=== PATIENT | female | born 1950 | race African-American/Black ===

== ENCOUNTER 2021-06-23 09:16 | Inpatient (IN) | payer MEDICARE, MEDICAID ==
[~2021-06-23] VITALS: Ht 154.9 cm; Wt 50.3 kg
[~2021-06-23 09:16] MED LIST: ALEN70TA79; BENA40TA9; CALC-1042; DILT240C96; DORZ10DR9 EACHEYE; FLUT1DIS3 INH; GABA-532; HYDR25TA PO; INSU100V3 IJ; METF500T PO; OMEP20CA4; PARO-41 PO; PRAV40TA58; TIOT18CA3 INH; lantus SQ; proair IH
[2021-06-23] MEDS ORDERED: SODIUM CHLORIDE 0.9% 250 ML IV ONE (10:00)
[2021-06-23] MEDS ORDERED: CEFTRIAXONE 1 G PREMIX 50 ML IV STA (10:21)
[2021-06-23] MEDS ORDERED: AZITHROMYCIN 500MG/250ML 250 ML IV ONE (10:30)
[2021-06-23 10:31] LABS: BASOPHILS % 0.5 % (0.0-2.0); EOSINOPHILS % 1.1 % (0.0-5.0); HEMATOCRIT. 46.5 % (36.0-48.0); HEMOGLOBIN. 15.1 g/dL (12.0-16.0); MEAN CORPUSCULAR HEMOGLOBIN 29.4 pg (28.0-32.0); MEAN CORPUSCULAR VOLUME 90.3 fL (81.0-99.0); MEAN PLATELET VOLUME 8.6 fl (7.4-10.4); MONOCYTES % 6.3 % (2.0-8.0); NEUTROPHILS % 76.1 % (40.0-76.0); PLATELET 247 x1000/uL (130-400); RED BLOOD CELL COUNT 5.15 mill/uL (4.2-5.4); RED CELL DISTRIBUTION WIDTH 17.1 % (11.6-14.6)
[2021-06-23 10:39] LABS: CHLORIDE 109 mEq/L (98-107)
[2021-06-23] MEDS ORDERED: ASPIRIN 81MG TABLET PO ONE (12:00)
[2021-06-23 13:40] LABS: CLARITY URINE CLOUDY (CLEAR); COLOR URINE YELLOW (YELLOW); KETONES URINE TRACE (NEGATIVE); LEUKOCYTE ESTERASE URINE NEGATIVE (NEGATIVE); NITRITE URINE NEGATIVE (NEGATIVE); OCCULT BLOOD URINE NEGATIVE (NEGATIVE); PH URINE 5.5 (4.5-8.0); PROTEIN URINE 3+ (NEGATIVE); SPECIFIC GRAVITY URINE 1.026 (1.005-1.030)
[2021-06-23] MEDS ORDERED: DEXTROSE 50% WATER 50ML SYRINGE IV PRN (15:30)
[2021-06-23] MEDS ORDERED: CEFTRIAXONE 1 G PREMIX 50 ML IV SCH (15:30)
[2021-06-23 15:45] LABS: BG BASE EXCESS -0.9 mmol/L (-2.0-2.0); BG CARBOXYHEMOGLOBIN 1.3 % (0.5-1.5); BG DEOXYHEMOGLOBIN 11.2 % (0.0-5.0); BG HCO3 ACT 21.2 mmol/L (22.0-26.0); BG METHEMOGLOBIN 0.2 % (0.0-1.5); BG OXYGEN SATURATION 88.6 % (92.0-98.5); BG OXYHEMOGLOBIN 87.3 % (94.0-97.0); BG PCO2 28.9 mmHg (35.0-45.0); BG PH 7.483 (7.350-7.450); BG PO2 53.2 mmHg (75.0-100.0); BG TOTAL HEMOGLOBIN 15.5 g/dL (12.0-18.0); BG VENT MODE NASAL CANNULA
[2021-06-23] MEDS: METHYLPREDNISOLONE SOD SUCC 40 MG/ML VIAL IV SCH ×2 (15:57→20:59)
[2021-06-23] MEDS: DEXT 5%/0.45% NACL 1000ML 1,000 ML IV SCH (15:57)
[2021-06-23] MEDS ORDERED: LORAZEPAM 0.5MG TABLET PO PRN (17:15)
[2021-06-23] MEDS ORDERED: DOCUSATE SODIUM 100MG CAPSULE PO PRN (17:15)
[2021-06-23] MEDS ORDERED: DIPHENHYDRAMINE 50MG/ML VIAL IV PRN (17:15)
[2021-06-23] MEDS ORDERED: CLONIDINE 0.1MG TABLET PO PRN (17:15)
[2021-06-23] MEDS ORDERED: HYDROCODONE/ACETAMINOPHEN 5/325MG TABLET PO PRN (17:15)
[2021-06-23] MEDS ORDERED: GUAIFENESIN 200MG/10ML SUGAR FREE UDC PO PRN (17:15)
[2021-06-23] MEDS ORDERED: IPRATROPIUM/ALBUTEROL 0.5-3(2.5)MG/3ML NEB NEB PRN (17:15)
[2021-06-23] MEDS ORDERED: ACETAMINOPHEN 650MG SUPP PR PRN (17:15)
[2021-06-23] MEDS ORDERED: NA PHOS,M-B/NA PHOS,DI-BA ENEMA 118ML PR PRN (17:15)
[2021-06-23] MEDS ORDERED: MAGNESIUM/ALUMINUM HYDROXIDE/SIMETHICONE 30ML UDC PO PRN (17:15)
[2021-06-23] MEDS ORDERED: ONDANSETRON HCL 4MG/2ML INJ IV PRN (17:15)
[2021-06-23] MEDS: BLOOD SUGAR DIAGNOSTIC STRIP TEST SCH ×2 (17:27→21:59)
[2021-06-23 17:39] LABS: INR 1.1; PROTHROMBIN TIME 12.2 sec (9.6-11.0)
[2021-06-23] MEDS: ENOXAPARIN 30MG/0.3ML SYR SUBCUT SCH (18:34)
[2021-06-23] MEDS: FAMOTIDINE 20MG TABLET PO SCH (20:59)
[2021-06-23] MEDS ORDERED: NALOXONE HCL 0.4MG/ML VIAL IV PRN (22:00)
[2021-06-23 23:00] VITALS: BP 158/69
[2021-06-24 00:01] VITALS: BP 158/69
[2021-06-24 00:15] LABS: CREATINE KINASE MB FRACTION 6.9 ng/mL (0.5-3.6)
[2021-06-24] MEDS: DEXT 5%/0.45% NACL 1000ML 1,000 ML IV SCH (04:50)
[2021-06-24] MEDS: BLOOD SUGAR DIAGNOSTIC STRIP TEST SCH ×5 (07:16→20:24)
[2021-06-24] MEDS: CEFTRIAXONE 1,000 MG in DEXTROSE 5% WATER 50 ML IV SCH (07:28)
[2021-06-24 08:00] VITALS: BP 148/68
[2021-06-24] MEDS ORDERED: CEFTRIAXONE 1,000 MG in DEXTROSE 5% WATER 50 ML IV SCH (08:00)
[2021-06-24 08:22] LABS: BASOPHILS % 0.2 % (0.0-2.0); HEMATOCRIT. 48.6 % (36.0-48.0); HEMOGLOBIN. 15.8 g/dL (12.0-16.0); LYMPHOCYTES % 22.2 % (20.0-50.0); MEAN CORPUSCULAR HEMOGLOBIN 30.1 pg (28.0-32.0); MEAN CORPUSCULAR VOLUME 92.6 fL (81.0-99.0); MEAN PLATELET VOLUME 8.8 fl (7.4-10.4); MONOCYTES % 5.3 % (2.0-8.0); NEUTROPHILS % 72.3 % (40.0-76.0); PLATELET 259 x1000/uL (130-400); RED BLOOD CELL COUNT 5.25 mill/uL (4.2-5.4); RED CELL DISTRIBUTION WIDTH 17.1 % (11.6-14.6)
[2021-06-24 08:27] LABS: CHLORIDE 109 mEq/L (98-107)
[2021-06-24 08:39] LABS: CREATINE KINASE 352 IU/L (26-192)
[2021-06-24 08:42] LABS: CREATINE KINASE MB FRACTION 7.1 ng/mL (0.5-3.6)
[2021-06-24] MEDS: AZITHROMYCIN 500 MG in DEXT 5% WATER 250 ML IV SCH (09:00)
[2021-06-24] MEDS: METHYLPREDNISOLONE SOD SUCC 40 MG/ML VIAL IV SCH ×2 (09:00→21:04)
[2021-06-24] MEDS: ASPIRIN 81MG EC TABLET PO SCH (09:00)
[2021-06-24] MEDS ORDERED: AZITHROMYCIN 500 MG in DEXT 5% WATER 250 ML IV SCH (09:00)
[2021-06-24] MEDS ORDERED: DEXTROSE 50% WATER 50ML SYRINGE IV PRN (12:00)
[2021-06-24] MEDS: INSULIN LISPRO 100 UNITS/ML SUBCUT SCH ×3 (12:14→21:05)
[2021-06-24 13:34] LABS: *AMPHETAMINES SCREEN URINE NEGATIVE (NEGATIVE); *BARBITURATES SCREEN URINE NEGATIVE (NEGATIVE); OPIATES URINE SCREEN NEGATIVE (NEGATIVE)
[2021-06-24 13:35] LABS: *BENZODIAZEPINES SCREEN URINE NEGATIVE (NEGATIVE); *COCAINE SCREEN URINE NEGATIVE (NEGATIVE)
[2021-06-24 13:36] LABS: METHADONE URINE SCREEN NEGATIVE (NEGATIVE)
[2021-06-24 13:38] LABS: PHENCYCLIDINE URINE SCREEN NEGATIVE (NEGATIVE)
[2021-06-24 13:41] LABS: CANNABINOID URINE SCREEN NEGATIVE (NEGATIVE)
[2021-06-24 16:00] VITALS: BP 150/71
[2021-06-24] MEDS: ENOXAPARIN 30MG/0.3ML SYR SUBCUT SCH (17:16)
[2021-06-24] MEDS: DILTIAZEM HCL 60MG TABLET PO SCH (17:17)
[2021-06-24 20:00] VITALS: BP 129/48
[2021-06-24] MEDS: IPRATROPIUM/ALBUTEROL 0.5-3(2.5)MG/3ML NEB HHN SCH (20:34)
[2021-06-24] MEDS: FAMOTIDINE 20MG TABLET PO SCH (21:04)
[2021-06-25] MEDS: LORAZEPAM 2MG/ML CPJ IV PRN ×2 (00:50→16:58)
[2021-06-25] MEDS: IPRATROPIUM/ALBUTEROL 0.5-3(2.5)MG/3ML NEB HHN SCH ×3 (02:45→20:39)
[2021-06-25 06:46] LABS: HEMATOCRIT. 44.1 % (36.0-48.0); HEMOGLOBIN. 14.1 g/dL (12.0-16.0); MEAN CORPUSCULAR HEMOGLOBIN 29.2 pg (28.0-32.0); MEAN CORPUSCULAR VOLUME 91.4 fL (81.0-99.0); MEAN PLATELET VOLUME 8.7 fl (7.4-10.4); PLATELET 271 x1000/uL (130-400); RED BLOOD CELL COUNT 4.82 mill/uL (4.2-5.4); RED CELL DISTRIBUTION WIDTH 17.1 % (11.6-14.6)
[2021-06-25] MEDS: BLOOD SUGAR DIAGNOSTIC STRIP TEST SCH ×4 (07:10→20:51)
[2021-06-25] MEDS: INSULIN LISPRO 100 UNITS/ML SUBCUT SCH ×4 (07:40→20:51)
[2021-06-25 08:00] VITALS: BP 130/64
[2021-06-25] MEDS: CEFTRIAXONE 1,000 MG in DEXTROSE 5% WATER 50 ML IV SCH (08:59)
[2021-06-25] MEDS: AZITHROMYCIN 500 MG in DEXT 5% WATER 250 ML IV SCH (08:59)
[2021-06-25] MEDS: ASPIRIN 81MG EC TABLET PO SCH (09:00)
[2021-06-25] MEDS: METHYLPREDNISOLONE SOD SUCC 40 MG/ML VIAL IV SCH ×2 (09:00→20:50)
[2021-06-25 11:51] LABS: BG BASE EXCESS -6.6 mmol/L (-2.0-2.0); BG CARBOXYHEMOGLOBIN 0.4 % (0.5-1.5); BG DEOXYHEMOGLOBIN 9.6 % (0.0-5.0); BG FRACTION INSPIRED OXYGEN 21; BG HCO3 ACT 15.6 mmol/L (22.0-26.0); BG OXYGEN SATURATION 90.4 % (92.0-98.5); BG PCO2 24.1 mmHg (35.0-45.0); BG PH 7.429 (7.350-7.450); BG PO2 59.9 mmHg (75.0-100.0); BG SAMPLE SITE LEFT BRACHIAL; BG TOTAL HEMOGLOBIN 14.9 g/dL (12.0-18.0); BG VENT MODE ROOM AIR
[2021-06-25 11:51] LABS: VITAMIN B12 SERUM > 2000.0 pg/mL (211-911)
[2021-06-25 12:00] VITALS: BP 134/67
[2021-06-25] MEDS ORDERED: FUROSEMIDE 40MG/4ML VIAL IVP NR (12:00)
[2021-06-25] MEDS: DILTIAZEM HCL 60MG TABLET PO SCH ×4 (12:39→16:58)
[2021-06-25] MEDS: ISOSORBIDE MONONITRATE 30MG TABLET SR 24HR PO SCH (12:40)
[2021-06-25 13:59] LABS: PLATELET ESTIMATE NORMAL
[2021-06-25] MEDS: NICOTINE 14MG PATCH TD SCH (15:35)
[2021-06-25 16:00] VITALS: BP 122/65
[2021-06-25] MEDS: ENOXAPARIN 30MG/0.3ML SYR SUBCUT SCH (16:58)
[2021-06-25 20:00] VITALS: BP 108/61
[2021-06-25] MEDS: FAMOTIDINE 20MG TABLET PO SCH (20:50)
[2021-06-26] VITALS: BP 140/64
[2021-06-26] MEDS: DILTIAZEM HCL 60MG TABLET PO SCH ×4 (00:16→18:17)
[2021-06-26] MEDS: LORAZEPAM 2MG/ML CPJ IV PRN ×2 (00:17→15:24)
[2021-06-26] MEDS: IPRATROPIUM/ALBUTEROL 0.5-3(2.5)MG/3ML NEB HHN SCH ×4 (02:23→21:22)
[2021-06-26 04:00] VITALS: BP 100/66
[2021-06-26] MEDS: BLOOD SUGAR DIAGNOSTIC STRIP TEST SCH ×4 (06:57→21:16)
[2021-06-26] MEDS: INSULIN LISPRO 100 UNITS/ML SUBCUT SCH ×4 (06:57→21:46)
[2021-06-26 07:10] LABS: BASOPHILS % 0.1 % (0.0-2.0); HEMATOCRIT. 42.3 % (36.0-48.0); HEMOGLOBIN. 13.3 g/dL (12.0-16.0); LYMPHOCYTES % 8.5 % (20.0-50.0); MEAN CORPUSCULAR HEMOGLOBIN 29.1 pg (28.0-32.0); MEAN CORPUSCULAR VOLUME 92.3 fL (81.0-99.0); MEAN PLATELET VOLUME 8.3 fl (7.4-10.4); MONOCYTES % 3.3 % (2.0-8.0); NEUTROPHILS % 88.1 % (40.0-76.0); PLATELET 247 x1000/uL (130-400); RED BLOOD CELL COUNT 4.59 mill/uL (4.2-5.4); RED CELL DISTRIBUTION WIDTH 17.1 % (11.6-14.6)
[2021-06-26 08:00] VITALS: BP 141/69
[2021-06-26] MEDS: CEFTRIAXONE 1,000 MG in DEXTROSE 5% WATER 50 ML IV SCH (08:54)
[2021-06-26] MEDS: ASPIRIN 81MG EC TABLET PO SCH (08:54)
[2021-06-26] MEDS: METHYLPREDNISOLONE SOD SUCC 40 MG/ML VIAL IV SCH (08:54)
[2021-06-26] MEDS: NICOTINE 14MG PATCH TD SCH (08:54)
[2021-06-26] MEDS: AZITHROMYCIN 500 MG in DEXT 5% WATER 250 ML IV SCH (08:54)
[2021-06-26] MEDS: ISOSORBIDE MONONITRATE 30MG TABLET SR 24HR PO SCH (08:59)
[2021-06-26] MEDS: ACETAMINOPHEN 325MG TABLET PO PRN (10:43)
[2021-06-26 12:00] VITALS: BP 130/67
[2021-06-26] MEDS: RISPERIDONE 0.25MG TABLET PO SCH (15:24)
[2021-06-26 16:30] VITALS: BP 123/69
[2021-06-26] MEDS: ENOXAPARIN 30MG/0.3ML SYR SUBCUT SCH (18:13)
[2021-06-26 20:00] VITALS: BP 104/62
[2021-06-26] MEDS: FAMOTIDINE 20MG TABLET PO SCH (21:16)
[2021-06-27] VITALS: BP 130/89
[2021-06-27] MEDS: DILTIAZEM HCL 60MG TABLET PO SCH ×4 (00:14→17:57)
[2021-06-27] MEDS: IPRATROPIUM/ALBUTEROL 0.5-3(2.5)MG/3ML NEB HHN SCH ×3 (00:37→21:56)
[2021-06-27 04:00] VITALS: BP 126/81
[2021-06-27] MEDS: BLOOD SUGAR DIAGNOSTIC STRIP TEST SCH ×4 (06:10→21:00)
[2021-06-27 07:06] LABS: BASOPHILS % 0.1 % (0.0-2.0); HEMATOCRIT. 40.5 % (36.0-48.0); HEMOGLOBIN. 13.5 g/dL (12.0-16.0); LYMPHOCYTES % 8.6 % (20.0-50.0); MEAN CORPUSCULAR HEMOGLOBIN 30.2 pg (28.0-32.0); MEAN CORPUSCULAR VOLUME 90.8 fL (81.0-99.0); MEAN PLATELET VOLUME 8.8 fl (7.4-10.4); MONOCYTES % 7.8 % (2.0-8.0); NEUTROPHILS % 83.5 % (40.0-76.0); PLATELET 235 x1000/uL (130-400); RED BLOOD CELL COUNT 4.46 mill/uL (4.2-5.4)
[2021-06-27] MEDS: INSULIN LISPRO 100 UNITS/ML SUBCUT SCH ×4 (07:08→21:00)
[2021-06-27 08:00] VITALS: BP 103/59
[2021-06-27] MEDS: AZITHROMYCIN 500 MG in DEXT 5% WATER 250 ML IV SCH (08:49)
[2021-06-27] MEDS: CEFTRIAXONE 1,000 MG in DEXTROSE 5% WATER 50 ML IV SCH (08:49)
[2021-06-27] MEDS: RISPERIDONE 0.25MG TABLET PO SCH ×2 (08:49→13:09)
[2021-06-27] MEDS: METHYLPREDNISOLONE SOD SUCC 40 MG/ML VIAL IV SCH (08:49)
[2021-06-27] MEDS: ASPIRIN 81MG EC TABLET PO SCH (08:49)
[2021-06-27] MEDS: NICOTINE 14MG PATCH TD SCH (08:50)
[2021-06-27] MEDS: ISOSORBIDE MONONITRATE 30MG TABLET SR 24HR PO SCH (09:00)
[2021-06-27] MEDS ORDERED: FUROSEMIDE 40MG/4ML VIAL IVP NR (10:00)
[2021-06-27] MEDS ORDERED: POTASSIUM CHLORIDE 20MEQ TABLET SR PO NR (10:00)
[2021-06-27 12:00] VITALS: BP 110/69
[2021-06-27 16:00] VITALS: BP 136/76
[2021-06-27 16:46] LABS: BG BASE EXCESS 0.4 mmol/L (-2.0-2.0); BG CARBOXYHEMOGLOBIN 0.9 % (0.5-1.5); BG DEOXYHEMOGLOBIN 9.7 % (0.0-5.0); BG FRACTION INSPIRED OXYGEN 21; BG HCO3 ACT 22.7 mmol/L (22.0-26.0); BG METHEMOGLOBIN 0.2 % (0.0-1.5); BG OXYGEN SATURATION 90.2 % (92.0-98.5); BG OXYHEMOGLOBIN 89.2 % (94.0-97.0); BG PCO2 30.5 mmHg (35.0-45.0); BG PH 7.489 (7.350-7.450); BG PO2 55.6 mmHg (75.0-100.0); BG SAMPLE SITE LEFT BRACHIAL; BG TOTAL HEMOGLOBIN 14.9 g/dL (12.0-18.0); BG VENT MODE ROOM AIR
[2021-06-27] MEDS: ENOXAPARIN 30MG/0.3ML SYR SUBCUT SCH (17:30)
[2021-06-27] MEDS: LORAZEPAM 2MG/ML CPJ IV PRN (17:54)
[2021-06-27 20:00] VITALS: BP 99/47
[2021-06-27] MEDS: FAMOTIDINE 20MG TABLET PO SCH (23:19)
[2021-06-28] VITALS: BP 105/48
[2021-06-28 04:00] VITALS: BP 132/59
[2021-06-28] MEDS: DILTIAZEM HCL 60MG TABLET PO SCH ×4 (06:00→17:02)
[2021-06-28] MEDS: BLOOD SUGAR DIAGNOSTIC STRIP TEST SCH ×4 (06:40→20:50)
[2021-06-28 06:49] LABS: BASOPHILS % 0.1 % (0.0-2.0); HEMATOCRIT. 42.3 % (36.0-48.0); HEMOGLOBIN. 13.7 g/dL (12.0-16.0); LYMPHOCYTES % 9.1 % (20.0-50.0); MEAN CORPUSCULAR HEMOGLOBIN 29.4 pg (28.0-32.0); MEAN CORPUSCULAR VOLUME 90.6 fL (81.0-99.0); MEAN PLATELET VOLUME 8.6 fl (7.4-10.4); MONOCYTES % 7.2 % (2.0-8.0); NEUTROPHILS % 83.6 % (40.0-76.0); PLATELET 233 x1000/uL (130-400); RED BLOOD CELL COUNT 4.66 mill/uL (4.2-5.4); RED CELL DISTRIBUTION WIDTH 16.9 % (11.6-14.6)
[2021-06-28] MEDS: INSULIN LISPRO 100 UNITS/ML SUBCUT SCH ×4 (06:54→20:50)
[2021-06-28 07:24] LABS: CHLORIDE 110 mEq/L (98-107)
[2021-06-28 07:34] LABS: CREATINE KINASE 151 IU/L (26-192)
[2021-06-28 07:38] LABS: CREATINE KINASE MB FRACTION 3.6 ng/mL (0.5-3.6)
[2021-06-28 08:00] VITALS: BP 120/55
[2021-06-28] MEDS: NICOTINE 14MG PATCH TD SCH (08:34)
[2021-06-28] MEDS: METHYLPREDNISOLONE SOD SUCC 40 MG/ML VIAL IV SCH (08:34)
[2021-06-28] MEDS: ASPIRIN 81MG EC TABLET PO SCH (08:35)
[2021-06-28] MEDS: RISPERIDONE 0.25MG TABLET PO SCH (08:35)
[2021-06-28] MEDS: CEFTRIAXONE 1,000 MG in DEXTROSE 5% WATER 50 ML IV SCH (08:35)
[2021-06-28] MEDS: ISOSORBIDE MONONITRATE 30MG TABLET SR 24HR PO SCH (08:35)
[2021-06-28] MEDS: IPRATROPIUM/ALBUTEROL 0.5-3(2.5)MG/3ML NEB HHN SCH ×3 (09:18→20:30)
[2021-06-28 12:00] VITALS: BP 123/61
[2021-06-28 16:00] VITALS: BP 102/46
[2021-06-28] MEDS: ENOXAPARIN 30MG/0.3ML SYR SUBCUT SCH (16:59)
[2021-06-28 20:00] VITALS: BP 117/57
[2021-06-28] MEDS: FAMOTIDINE 20MG TABLET PO SCH (20:49)
[2021-06-29] VITALS: BP 112/50
[2021-06-29] MEDS: IPRATROPIUM/ALBUTEROL 0.5-3(2.5)MG/3ML NEB HHN SCH ×4 (00:56→20:10)
[2021-06-29 04:00] VITALS: BP 137/76
[2021-06-29] MEDS: LORAZEPAM 2MG/ML CPJ IV PRN ×2 (04:30→08:57)
[2021-06-29] MEDS: DILTIAZEM HCL 60MG TABLET PO SCH ×3 (05:04→13:08)
[2021-06-29] MEDS: INSULIN LISPRO 100 UNITS/ML SUBCUT SCH ×5 (06:05→21:18)
[2021-06-29] MEDS: BLOOD SUGAR DIAGNOSTIC STRIP TEST SCH ×4 (06:05→21:10)
[2021-06-29 06:49] LABS: BASOPHILS % 0.1 % (0.0-2.0); HEMATOCRIT. 42.6 % (36.0-48.0); HEMOGLOBIN. 13.7 g/dL (12.0-16.0); LYMPHOCYTES % 7.2 % (20.0-50.0); MEAN CORPUSCULAR HEMOGLOBIN 29.6 pg (28.0-32.0); MEAN CORPUSCULAR VOLUME 92.1 fL (81.0-99.0); MEAN PLATELET VOLUME 8.6 fl (7.4-10.4); MONOCYTES % 7.6 % (2.0-8.0); NEUTROPHILS % 85.1 % (40.0-76.0); PLATELET 230 x1000/uL (130-400); RED BLOOD CELL COUNT 4.62 mill/uL (4.2-5.4); RED CELL DISTRIBUTION WIDTH 17.1 % (11.6-14.6)
[2021-06-29 08:00] VITALS: BP 122/59
[2021-06-29] MEDS: ASPIRIN 81MG EC TABLET PO SCH (08:34)
[2021-06-29] MEDS: RISPERIDONE 0.25MG TABLET PO SCH (08:35)
[2021-06-29] MEDS: ISOSORBIDE MONONITRATE 30MG TABLET SR 24HR PO SCH (08:35)
[2021-06-29] MEDS: METHYLPREDNISOLONE SOD SUCC 40 MG/ML VIAL IV SCH (08:35)
[2021-06-29] MEDS: NICOTINE 14MG PATCH TD SCH (08:36)
[2021-06-29 12:00] VITALS: BP 145/66
[2021-06-29] MEDS ORDERED: LORAZEPAM 2MG/ML CPJ IV NR (12:30)
[2021-06-29 20:00] VITALS: BP 119/53
[2021-06-29] MEDS: FAMOTIDINE 20MG TABLET PO SCH (21:09)
[2021-06-30] VITALS: BP 125/77
[2021-06-30] MEDS: DILTIAZEM HCL 60MG TABLET PO SCH ×5 (00:15→23:54)
[2021-06-30] MEDS: IPRATROPIUM/ALBUTEROL 0.5-3(2.5)MG/3ML NEB HHN SCH ×5 (02:58→20:13)
[2021-06-30 04:00] VITALS: BP 123/69
[2021-06-30] MEDS: INSULIN LISPRO 100 UNITS/ML SUBCUT SCH ×4 (06:18→21:04)
[2021-06-30] MEDS: BLOOD SUGAR DIAGNOSTIC STRIP TEST SCH ×4 (06:19→21:06)
[2021-06-30 08:31] VITALS: BP 131/49
[2021-06-30] MEDS: NICOTINE 14MG PATCH TD SCH (09:12)
[2021-06-30] MEDS: METHYLPREDNISOLONE SOD SUCC 40 MG/ML VIAL IV SCH (09:12)
[2021-06-30] MEDS: ISOSORBIDE MONONITRATE 30MG TABLET SR 24HR PO SCH (09:12)
[2021-06-30] MEDS: RISPERIDONE 0.25MG TABLET PO SCH (09:12)
[2021-06-30 12:00] VITALS: BP 149/73
[2021-06-30 13:12] LABS: HEMATOCRIT. 41.1 % (36.0-48.0); MEAN CORPUSCULAR HEMOGLOBIN 29.6 pg (28.0-32.0); MEAN CORPUSCULAR VOLUME 93.6 fL (81.0-99.0); MEAN PLATELET VOLUME 9.1 fl (7.4-10.4); PLATELET 231 x1000/uL (130-400); RED BLOOD CELL COUNT 4.39 mill/uL (4.2-5.4); RED CELL DISTRIBUTION WIDTH 17.6 % (11.6-14.6)
[2021-06-30] MEDS ORDERED: INSULIN LISPRO 100 UNITS/ML SUBCUT SCH ×2 (13:45)
[2021-06-30 13:50] LABS: PLATELET ESTIMATE NORMAL
[2021-06-30] MEDS ORDERED: INSULIN GLARGINE UD 100 UNITS/ML SYR SUBCUT SCH ×2 (15:00→23:00)
[2021-06-30 16:00] VITALS: BP 131/52
[2021-06-30 20:00] VITALS: BP 154/73
[2021-06-30] MEDS: FAMOTIDINE 20MG TABLET PO SCH (20:49)
[2021-06-30] MEDS: INSULIN GLARGINE UD 100 UNITS/ML SYR SUBCUT SCH (21:21)
[2021-06-30] MEDS: LORAZEPAM 2MG/ML CPJ IV PRN (23:05)
[2021-07-01] VITALS: BP 149/83
[2021-07-01] MEDS: IPRATROPIUM/ALBUTEROL 0.5-3(2.5)MG/3ML NEB HHN SCH ×4 (02:36→18:00)
[2021-07-01 04:00] VITALS: BP 117/76
[2021-07-01 06:08] LABS: BASOPHILS % 0.4 % (0.0-2.0); HEMATOCRIT. 40.6 % (36.0-48.0); HEMOGLOBIN. 13.1 g/dL (12.0-16.0); LYMPHOCYTES % 7.1 % (20.0-50.0); MEAN CORPUSCULAR HEMOGLOBIN 29.6 pg (28.0-32.0); MEAN CORPUSCULAR VOLUME 91.8 fL (81.0-99.0); MEAN PLATELET VOLUME 8.7 fl (7.4-10.4); NEUTROPHILS % 87.5 % (40.0-76.0); PLATELET 227 x1000/uL (130-400); RED BLOOD CELL COUNT 4.43 mill/uL (4.2-5.4); RED CELL DISTRIBUTION WIDTH 17.4 % (11.6-14.6)
[2021-07-01] MEDS: INSULIN LISPRO 100 UNITS/ML SUBCUT SCH ×4 (06:21→20:27)
[2021-07-01] MEDS: BLOOD SUGAR DIAGNOSTIC STRIP TEST SCH ×4 (06:22→20:27)
[2021-07-01] MEDS: DILTIAZEM HCL 60MG TABLET PO SCH ×4 (06:25→23:07)
[2021-07-01 08:00] VITALS: BP 125/49
[2021-07-01] MEDS: RISPERIDONE 0.25MG TABLET PO SCH (08:56)
[2021-07-01] MEDS: ISOSORBIDE MONONITRATE 30MG TABLET SR 24HR PO SCH (08:56)
[2021-07-01] MEDS: NICOTINE 14MG PATCH TD SCH (08:57)
[2021-07-01] MEDS: INSULIN GLARGINE UD 100 UNITS/ML SYR SUBCUT SCH ×2 (09:06→21:15)
[2021-07-01] MEDS ORDERED: INSULIN GLARGINE UD 100 UNITS/ML SYR SUBCUT SCH (11:00)
[2021-07-01 12:00] VITALS: BP 138/82
[2021-07-01 16:00] VITALS: BP 158/62
[2021-07-01] MEDS: SODIUM CHLORIDE 0.45% 1,000 ML IV SCH (18:04)
[2021-07-01 20:00] VITALS: BP 160/62
[2021-07-01] MEDS: FAMOTIDINE 20MG TABLET PO SCH (20:27)
[2021-07-01] MEDS: ACETAMINOPHEN 325MG TABLET PO PRN (23:07)
[2021-07-01] MEDS: LORAZEPAM 2MG/ML CPJ IV PRN (23:37)
[2021-07-02] VITALS: BP 142/72
[2021-07-02] MEDS: SODIUM CHLORIDE 0.45% 1,000 ML IV SCH (03:47)
[2021-07-02 04:00] VITALS: BP 140/81
[2021-07-02] MEDS: INSULIN LISPRO 100 UNITS/ML SUBCUT SCH ×4 (06:20→21:25)
[2021-07-02] MEDS: BLOOD SUGAR DIAGNOSTIC STRIP TEST SCH ×4 (06:20→20:38)
[2021-07-02] MEDS: DILTIAZEM HCL 60MG TABLET PO SCH ×3 (06:25→17:28)
[2021-07-02 08:00] VITALS: BP 114/54
[2021-07-02] MEDS: IPRATROPIUM/ALBUTEROL 0.5-3(2.5)MG/3ML NEB HHN SCH ×4 (08:12→21:01)
[2021-07-02] MEDS: RISPERIDONE 0.25MG TABLET PO SCH (09:19)
[2021-07-02] MEDS: NICOTINE 14MG PATCH TD SCH (09:20)
[2021-07-02] MEDS: ACETAMINOPHEN 325MG TABLET PO PRN (09:20)
[2021-07-02] MEDS: ISOSORBIDE MONONITRATE 30MG TABLET SR 24HR PO SCH (09:52)
[2021-07-02] MEDS: INSULIN GLARGINE UD 100 UNITS/ML SYR SUBCUT SCH ×2 (09:53→21:24)
[2021-07-02 12:00] VITALS: BP 133/58
[2021-07-02 16:00] VITALS: BP 133/55
[2021-07-02 20:00] VITALS: BP 105/50
[2021-07-02] MEDS: FAMOTIDINE 20MG TABLET PO SCH (21:23)
[2021-07-03] VITALS: BP 155/52
[2021-07-03] MEDS: IPRATROPIUM/ALBUTEROL 0.5-3(2.5)MG/3ML NEB HHN SCH ×3 (02:04→22:03)
[2021-07-03] MEDS: BLOOD SUGAR DIAGNOSTIC STRIP TEST SCH ×4 (04:59→20:44)
[2021-07-03] MEDS: DILTIAZEM HCL 60MG TABLET PO SCH ×2 (05:12→12:01)
[2021-07-03] MEDS: INSULIN LISPRO 100 UNITS/ML SUBCUT SCH ×4 (05:15→20:43)
[2021-07-03 05:21] VITALS: BP 150/54
[2021-07-03] MEDS: SODIUM CHLORIDE 0.45% 1,000 ML IV SCH (05:59)
[2021-07-03 08:00] VITALS: BP 153/92
[2021-07-03 10:23] LABS: BG BASE EXCESS 0.3 mmol/L (-2.0-2.0); BG CARBOXYHEMOGLOBIN 1.4 % (0.5-1.5); BG DEOXYHEMOGLOBIN 3.2 % (0.0-5.0); BG METHEMOGLOBIN 0.2 % (0.0-1.5); BG OXYGEN SATURATION 96.7 % (92.0-98.5); BG OXYHEMOGLOBIN 95.2 % (94.0-97.0); BG PCO2 28.3 mmHg (35.0-45.0); BG PH 7.508 (7.350-7.450); BG PO2 79.5 mmHg (75.0-100.0); BG SAMPLE SITE LEFT BRACHIAL; BG TOTAL HEMOGLOBIN 15.2 g/dL (12.0-18.0); BG VENT MODE AERO MASK
[2021-07-03] MEDS: RISPERIDONE 0.25MG TABLET PO SCH (10:38)
[2021-07-03] MEDS: NICOTINE 14MG PATCH TD SCH (10:38)
[2021-07-03] MEDS: ISOSORBIDE MONONITRATE 30MG TABLET SR 24HR PO SCH (10:39)
[2021-07-03] MEDS: INSULIN GLARGINE UD 100 UNITS/ML SYR SUBCUT SCH ×2 (10:41→21:45)
[2021-07-03] MEDS ORDERED: IPRATROPIUM/ALBUTEROL 0.5-3(2.5)MG/3ML NEB HHN NR (11:15)
[2021-07-03] MEDS ORDERED: DILTIAZEM HCL 5MG/ML 5ML VIAL IV NR ×2 (11:15→13:40)
[2021-07-03] MEDS ORDERED: METHYLPREDNISOLONE SOD SUCC 40 MG/ML VIAL IV NR (11:15)
[2021-07-03] MEDS ORDERED: FUROSEMIDE 20MG/2ML VIAL IVP NR (11:15)
[2021-07-03 12:00] VITALS: BP 178/97
[2021-07-03 12:27] LABS: BASOPHILS % 0.3 % (0.0-2.0); EOSINOPHILS % 0.8 % (0.0-5.0); MEAN CORPUSCULAR HEMOGLOBIN 29.6 pg (28.0-32.0); MEAN CORPUSCULAR VOLUME 93.1 fL (81.0-99.0); MEAN PLATELET VOLUME 8.5 fl (7.4-10.4); MONOCYTES % 9.2 % (2.0-8.0); NEUTROPHILS % 76.7 % (40.0-76.0); PLATELET 224 x1000/uL (130-400); RED BLOOD CELL COUNT 4.73 mill/uL (4.2-5.4); RED CELL DISTRIBUTION WIDTH 17.5 % (11.6-14.6)
[2021-07-03 12:35] LABS: CHLORIDE 114 mEq/L (98-107)
[2021-07-03 12:43] LABS: CREATINE KINASE 70 IU/L (26-192); CREATINE KINASE MB FRACTION 4.9 ng/mL (0.5-3.6)
[2021-07-03] MEDS ORDERED: LEVOFLOXACIN 500MG PREMIX 100 ML IV NR (13:00)
[2021-07-03] MEDS ORDERED: DILTIAZEM HCL 30MG TABLET PO NR (13:41)
[2021-07-03] MEDS: ENOXAPARIN 30MG/0.3ML SYR SUBCUT SCH (14:07)
[2021-07-03 16:00] VITALS: BP 126/102
[2021-07-03] MEDS: DILTIAZEM HCL 90MG TABLET PO SCH (17:41)
[2021-07-03 20:00] VITALS: BP 135/71
[2021-07-03] MEDS: METHYLPREDNISOLONE SOD SUCC 40 MG/ML VIAL IV SCH (20:42)
[2021-07-03] MEDS: FAMOTIDINE 20MG TABLET PO SCH (20:42)
[2021-07-04] VITALS: BP 139/71
[2021-07-04] MEDS: IPRATROPIUM/ALBUTEROL 0.5-3(2.5)MG/3ML NEB HHN SCH ×4 (01:45→20:48)
[2021-07-04] MEDS: DILTIAZEM HCL 90MG TABLET PO SCH ×3 (01:59→12:00)
[2021-07-04 04:00] VITALS: BP 124/58
[2021-07-04] MEDS: METHYLPREDNISOLONE SOD SUCC 40 MG/ML VIAL IV SCH ×3 (04:43→20:37)
[2021-07-04 05:30] LABS: HEMATOCRIT. 41.1 % (36.0-48.0); HEMOGLOBIN. 13.5 g/dL (12.0-16.0); MEAN CORPUSCULAR HEMOGLOBIN 29.9 pg (28.0-32.0); MEAN CORPUSCULAR VOLUME 90.8 fL (81.0-99.0); MEAN PLATELET VOLUME 8.1 fl (7.4-10.4); PLATELET 203 x1000/uL (130-400); RED BLOOD CELL COUNT 4.53 mill/uL (4.2-5.4); RED CELL DISTRIBUTION WIDTH 17.6 % (11.6-14.6)
[2021-07-04] MEDS: BLOOD SUGAR DIAGNOSTIC STRIP TEST SCH ×4 (06:21→20:37)
[2021-07-04] MEDS: INSULIN LISPRO 100 UNITS/ML SUBCUT SCH ×4 (07:40→21:14)
[2021-07-04 08:00] VITALS: BP 147/60
[2021-07-04] MEDS: NICOTINE 14MG PATCH TD SCH (09:06)
[2021-07-04] MEDS: ISOSORBIDE MONONITRATE 30MG TABLET SR 24HR PO SCH (09:07)
[2021-07-04] MEDS: RISPERIDONE 0.25MG TABLET PO SCH (09:07)
[2021-07-04] MEDS: INSULIN GLARGINE UD 100 UNITS/ML SYR SUBCUT SCH ×2 (09:52→22:05)
[2021-07-04 12:00] VITALS: BP 101/56
[2021-07-04 13:30] LABS: PLATELET ESTIMATE NORMAL
[2021-07-04] MEDS ORDERED: FUROSEMIDE 40MG/4ML VIAL IVP NR (14:00)
[2021-07-04] MEDS: ENOXAPARIN 30MG/0.3ML SYR SUBCUT SCH (14:16)
[2021-07-04] MEDS: LEVOFLOXACIN 250MG PREMIX 50 ML IV SCH (14:17)
[2021-07-04 20:00] VITALS: BP 118/52
[2021-07-04] MEDS: FAMOTIDINE 20MG TABLET PO SCH (20:37)
[2021-07-05] VITALS (7 sets, daily range): BP systolic 105–157; BP diastolic 66–81
[2021-07-05] MEDS: IPRATROPIUM/ALBUTEROL 0.5-3(2.5)MG/3ML NEB HHN SCH ×3 (02:15→14:56)
[2021-07-05] MEDS: METHYLPREDNISOLONE SOD SUCC 40 MG/ML VIAL IV SCH ×3 (04:54→20:22)
[2021-07-05] MEDS: DILTIAZEM HCL 90MG TABLET PO SCH ×4 (06:00→19:37)
[2021-07-05] MEDS: INSULIN LISPRO 100 UNITS/ML SUBCUT SCH ×4 (07:04→20:22)
[2021-07-05] MEDS: BLOOD SUGAR DIAGNOSTIC STRIP TEST SCH ×4 (07:04→20:22)
[2021-07-05 07:47] LABS: HEMOGLOBIN. 13.1 g/dL (12.0-16.0); MEAN CORPUSCULAR HEMOGLOBIN 29.7 pg (28.0-32.0); MEAN CORPUSCULAR VOLUME 92.9 fL (81.0-99.0); MEAN PLATELET VOLUME 8.9 fl (7.4-10.4); PLATELET 230 x1000/uL (130-400); RED BLOOD CELL COUNT 4.41 mill/uL (4.2-5.4); RED CELL DISTRIBUTION WIDTH 17.9 % (11.6-14.6)
[2021-07-05] MEDS: NICOTINE 14MG PATCH TD SCH (09:33)
[2021-07-05] MEDS: ISOSORBIDE MONONITRATE 30MG TABLET SR 24HR PO SCH (09:33)
[2021-07-05] MEDS: RISPERIDONE 0.25MG TABLET PO SCH (09:33)
[2021-07-05] MEDS: INSULIN GLARGINE UD 100 UNITS/ML SYR SUBCUT SCH (09:35)
[2021-07-05] MEDS: ENOXAPARIN 30MG/0.3ML SYR SUBCUT SCH (13:33)
[2021-07-05] MEDS: LEVOFLOXACIN 250MG PREMIX 50 ML IV SCH (13:34)
[2021-07-05 17:28] LABS: PLATELET ESTIMATE NORMAL
[2021-07-05] MEDS: FAMOTIDINE 20MG TABLET PO SCH (20:22)
== END 2021-07-05 21:47 | DRG 637 ==
LOC: ER 09:41 → EDBEDREQTM 10:53 → EDBEDREQSVC 10:53 → EDBEDREQ 10:53 → EDBEDREQTM 14:26 → SUPCPDRO 17:01 → MICUSO 21:16 → 7WST 21:39 → 8WST 06-24 13:40
PROVIDERS: ADMIT Internal Medicine; ATTEND Internal Medicine
DX: E11.649 Type 2 diabetes mellitus with hypoglycemia without coma (principal); J18.9 Pneumonia, unspecified organism; G93.41 Metabolic encephalopathy; I62.03 Nontraumatic chronic subdural hemorrhage; J44.1 Chronic obstructive pulmonary disease with (acute) exacerbation; Q21.1 Atrial septal defect; J44.0 Chronic obstructive pulmonary disease with (acute) lower respiratory infection; I42.9 Cardiomyopathy, unspecified; I31.3 Pericardial effusion (noninflammatory); R06.03 Acute respiratory distress; E78.5 Hyperlipidemia, unspecified; F17.210 Nicotine dependence, cigarettes, uncomplicated; I35.8 Other nonrheumatic aortic valve disorders; I45.10 Unspecified right bundle-branch block; N28.9 Disorder of kidney and ureter, unspecified; I25.10 Atherosclerotic heart disease of native coronary artery without angina pectoris; I35.0 Nonrheumatic aortic (valve) stenosis; I50.9 Heart failure, unspecified; I11.0 Hypertensive heart disease with heart failure; R32 Unspecified urinary incontinence; I36.1 Nonrheumatic tricuspid (valve) insufficiency; I27.20 Pulmonary hypertension, unspecified; R09.02 Hypoxemia; Z20.822 Contact with and (suspected) exposure to COVID-19; R91.1 Solitary pulmonary nodule; Z79.4 Long term (current) use of insulin; Z79.899 Other long term (current) drug therapy; Z79.51 Long term (current) use of inhaled steroids; Z79.84 Long term (current) use of oral hypoglycemic drugs
CPT/HCPCS: 36415; 36600; 70551; 71045; 71250; 76770; 78582; 80048; 80053; 80305; 81003; 82140; 82375; 82550; 82553; 82607; 82805; 82962; 83036; 83605; 83735; 83880; 84443; 84484; 85025; 85379; 87804; 93005; 93306; 93970; 94640; 97116; 97161; 99291; A9558; C1893; J0456; J0696; J1650; J1815; J1940; J1956; J2060; J2920; J3490; J7050; J7060; U0003; U0005